=== PATIENT | male | born 1960 | race Caucasian/White ===

== ENCOUNTER 2016-11-03 21:17 | Emergency (ER) | payer OTHER, MEDICARE ==
[~2016-11-03] VITALS: Ht 172.7 cm; Wt 72.6 kg
--- NOTE | 2016-11-03 21:31 | ED GENERAL ADULT ---
History of Present Illness General Chief Complaint: General Adult Stated Complaint: PT OVERDOSE Source: patient, family, old records Exam Limitations: intoxication Vital Signs & Intake/Output Vital Signs & Intake/Output Vital Signs Date Time Temp Pulse Resp B/P B/P Pulse O2 O2 Flow FiO2 Mean Ox Delivery Rate 11/04 0303 57 15 131/59 96 Room Air 11/04 0014 96.5 64 15 113/54 Room Air 11/03 2205 Room Air 11/03 2126 96.3 81 18 109/59 97 Room Air ED Intake and Output 11/04 0000 11/03 1200 Intake Total 1000 Output Total Balance 1000 Intake, IV 1000 Patient 160 lb Weight Weight Estimated Measurement Method Allergies Coded Allergies: ampicillin (From UNASYN) (UNKNOWN 11/03/16) sulbactam (From UNASYN) (UNKNOWN 11/03/16) amitriptyline (From ELAVIL) (Severe, "HEART ATTACK" 11/03/16) Triage Note: RECEIVED 55 YO MALE BOUGHT IN BY , WHO STATES SHE CAME HOME AND FOUND HIM WITH ALTERED MENTAL STATUS. OF PT THINKS HE OVERDOSED ON SOMETHING. PT AWAKE WITH SLURRED SPEECH, DIFFICULT TO UNDERSTAND. PT BOUGHT DIRECTLY TO ROOM # 6 FOR EVALUATION AND TREATMENT. PT EVALUATED BY BRET LINDO UPON ARRIVAL TO ROOM. Triage Nurses Notes Reviewed? yes HPI: Patient is a 55-year-old male brought in by his for possible overdose. Patient's reports that she came home and found the patient to be extremely lethargic with altered mental status. Patient's found that patient has pills wrapped in a tissue that have the inscription Mylan A4 on them. Patient admits to taking 2 mg of Xanax along with his methadone, gabapentin and 50 mg of Benadryl. Patient's reports that patient has had severe reactions to benzodiazepines previously. Patient denies chest pain, abdominal pain, suicide attempt, vomiting, dyspnea, suicide attempt. (QUENTIN LINDO,JUANA) Past History Travel History Traveled to [place] past 21 day No Medical History Any Pertinent Medical History? see below for history Neurological: PARKINSON'S EENT: NONE Cardiovascular: HIGH BLOOD PRESSURE Respiratory: NONE Gastrointestinal: CHRON'S DISEASE Hepatic: NONE Renal: NONE Musculoskeletal: NONE Psychiatric: NONE Endocrine: NONE Blood Disorders: NONE Cancer(s): NONE Pneumonia Vaccine: 05/23/05 Influenza Vaccine: 05/23/05 Surgical History Surgical History: non-contributory Psychosocial History Who do you live with Spouse Services at Home NONE What is your primary language Dutch Tobacco Use: Quit >30 days ago Family History Hx Contributory? No (JUANA LAWTON) Review of Systems Review of Systems Constitutional: Reports: malaise. Denies: chills, fever. EENTM: Reports: no symptoms. Respiratory: Denies: cough, short of breath. Cardiovascular: Denies: chest pain. GI: Reports: abdominal pain (chronic). Denies: diarrhea, vomiting. Genitourinary: Reports: no symptoms. Musculoskeletal: Reports: no symptoms. Skin: Reports: no symptoms. Neurological/Psychological: Reports: see HPI. Hematologic/Endocrine: Reports: no symptoms. Immunologic/Allergic: Reports: no symptoms. (JUANA LAWTON) Physical Exam Physical Exam General Appearance: sedated, lethargic Head: atraumatic, normal appearance Eyes: Bilateral: EOMI, other (3mm pupils). Ears, Nose, Throat: normal pharynx, normal ENT inspection, hearing grossly normal Neck: normal inspection, supple, full range of motion Respiratory: normal breath sounds, chest non-tender, no respiratory distress, lungs clear Cardiovascular: regular rate/rhythm Gastrointestinal: soft, surgical scar mid abdomen, mild right lower abdominal tenderness Back: normal inspection, normal range of motion Extremities: normal inspection, normal capillary refill, normal range of motion, no edema Neurologic/Psych: lethargic, easily arousable Skin: intact, normal color, warm/dry Lymphatic: no anterior cervical charles (JUANA LAWTON) Core Measures ACS in differential dx? No CVA/TIA Diagnosis: No Severe Sepsis Present: No Septic Shock Present: No (JOSE AVALOS,CECILE Talbert) Progress Differential Diagnoses I considered the following diagnoses in my evaluation of the patient: overdose, withdrawal, ICH, sepsis, symptomatic anemia Plan of Care: Orders Procedure Date/time Status Telemetry/Crystal Calibrator 11/03 2149 Active URINE DRUGS OF ABUSE 11/03 2129 Complete ACETOMINOPHEN 11/03 2129 Complete TROPONIN LEVEL 11/03 2129 Complete SALICYLATE 11/03 2129 Complete ETHANOL 11/03 2129 Complete COMPREHENSIVE METABOLIC PANEL 11/03 2129 Complete CREATINE PHOSPHOKINASE 11/03 2129 Complete CBC WITHOUT DIFFERENTIAL 11/03 2129 Complete EKG 11/03 2124 Active Current Medications Sig/Olamide Start time Last Medication Dose Stop Time Status Admin Dextrose/Sodium 1,000 ML Q8H 11/03 2245 AC 11/04 Chloride 11/04 0644 0013 (D5W-1/2 Normal Saline 1000ML) Laboratory Tests 11/04/16 0020: Urine Opiates Screen < 100.00, Methadone Screen > 735 H, Barbiturate Screen < 60, Ur Phencyclidine Scrn 9.30, Amphetamines Screen > 1450 H, U Benzodiazepines Scrn > 800 H, Urine Cocaine Screen < 50, Urine Cannabis Screen < 5.00 11/03/16 2150: Anion Gap 13, Estimated GFR 45 L, BUN/Creatinine Ratio 16.3, Glucose 84, Calcium 9.1, Total Bilirubin 0.3, AST 25, ALT 27, Alkaline Phosphatase 51, Creatine Kinase 105, Troponin I < 0.01, Total Protein 6.5, Albumin 3.8, Globulin 2.7, Albumin/Globulin Ratio 1.4, CBC w Diff NO MAN DIFF REQ, RBC 3.19 L, MCV 80.4, MCH 26.0 L, RDW 16.5 H, MPV 8.1, Gran % 53.3, Lymphocytes % 26.2, Monocytes % 15.6 H, Eosinophils % 4.9, Basophils % 0 L, Absolute Granulocytes 2.4, Absolute Lymphocytes 1.2, Absolute Monocytes 0.7 H, Absolute Eosinophils 0.2, Absolute Basophils 0, PUBS MCHC 32.4 L, Salicylates < 1.0, Acetaminophen < 10.0 L, Serum Alcohol < 10.0 11/03/2016 10:16:41 PM: Patient reports that he took the pills due to abdominal pain, his intention was not to harm himself. Patient maintaining his airway, is lethargic but easily arousable. Narcan deferred at this time. Discussed with Dr. Melendez. 11/04/2016 12:05:29 AM: Patient continues with lethargy, easily arousable. results of CT scans discussed with patient. (JUANA LAWTON) Diagnostic Imaging: Viewed by Me: CT Scan. Discussed w/RAD: CT Scan. Radiology Impression: PATIENT: TIFFANIE OLIVEIRA PRESENT AGE: 55 PATIENT ACCOUNT NO: [id number] : 61 LOCATION: [facility] ORDERING PHYSICIAN: JUANA LINDO SERVICE DATE: 11/03/16 EXAM TYPE: CAT - CT ABD & PELVIS W/O IV CONTRAS EXAMINATION: CT ABDOMEN AND PELVIS WITHOUT CONTRAST CLINICAL INFORMATION: Lower abdominal pain, history of Crohn's disease. COMPARISON: CT abdomen and pelvis 02/26/2008 TECHNIQUE: Multidetector volumetric imaging was performed from the superior aspect of the liver through the pubic symphysis. Sagittal and coronal reformatted images were obtained on the technologist's workstation. DLP: 503.1 mGy-cm FINDINGS: LUNG BASES: There is bibasilar atelectasis. No focal consolidation or effusion. LIVER, GALLBLADDER, AND BILIARY TREE: The liver is normal in size, shape, and attenuation. No focal hepatic lesion or biliary ductal dilatation is present. The gallbladder is unremarkable with no evidence of radiopaque gallstones, gallbladder wall thickening, or obvious pericholecystic inflammatory changes. PANCREAS: Unremarkable. SPLEEN: Unremarkable. ADRENAL GLANDS: Unremarkable. KIDNEYS AND URETERS: The kidneys are normal in size, shape, and attenuation. No hydronephrosis, hydroureter, or calculi seen. No perinephric stranding. There is a lower pole right renal cyst. BLADDER: Unremarkable. GASTROINTESTINAL TRACT: There is very dense stool present throughout the visualized colon. A sutural anastomosis is identified in the right upper quadrant. No dilated loops of small bowel are identified. The appendix appears surgically absent. There is no free intra-abdominal air. ABDOMINAL WALL: There are small bilateral fat-containing inguinal hernias. LYMPH NODES: There are a few tiny scattered mesenteric lymph nodes. VASCULAR: Unremarkable. PELVIC VISCERA: The prostate gland and seminal vesicles are unremarkable. OSSEOUS STRUCTURES: There are bilateral pars defects at the L5-S1 level. There is mild anterolisthesis at the L5-S1 level measuring approximately 0.5 cm. IMPRESSION: 1. Dense stool present throughout the colon. No CT evidence for acute small or large bowel obstruction. 2. Bilateral pars defects with grade 1 associated spondylolisthesis. 3. Incidental right renal simple cyst. DICTATED BY: NICHOL CABRERA MD DATE/TIME DICTATED:11/03/162306 PIPE BOWLS PAINT TRIMMER:JON DATE/TIME TRANSCRIBED:11/03/162306 CONFIDENTIAL, DO NOT COPY WITHOUT APPROPRIATE AUTHORIZATION. <Electronically signed in Other Vendor System> SIGNED BY: NICHOL CABRERA MD 11/03/162314, PATIENT: TIFFANIE OLIVEIRA PRESENT AGE: 55 PATIENT ACCOUNT NO: [id number] : 61 LOCATION: [facility] ORDERING PHYSICIAN: JUANA LINDO SERVICE DATE: 11/03/16 EXAM TYPE: CAT - CT HEAD WO IV CONTRAST EXAMINATION: CT HEAD WITHOUT CONTRAST CLINICAL INFORMATION: Change in mental status. Rule out bleed. COMPARISON: None. TECHNIQUE: Contiguous axial imaging was performed from the skull base to vertex without intravenous contrast. DLP: 601 mGy-cm. FINDINGS : There is no evidence of acute intracranial hemorrhage or territorial infarction. No abnormal mass effect or midline shift is seen. Arrington to white matter differentiation is well preserved. No extra-axial fluid collections are identified. No hydrocephalus. No significant volume loss. There is no abnormal attenuation within the brain parenchyma. The osseous structures and soft tissues are normal. The mastoid air cells and visualized portions of the paranasal sinuses are well aerated. IMPRESSION: No acute intracranial pathology. DICTATED BY: MARY LEA MD DATE/TIME DICTATED:11/03/162305 PIPE BOWLS PAINT TRIMMER: JON DATE/TIME TRANSCRIBED:11/03/162305 CONFIDENTIAL, DO NOT COPY WITHOUT APPROPRIATE AUTHORIZATION. <Electronically signed in Other Vendor System> SIGNED BY: MARY LEA MD 11/03/162310 Initial ED EKG: normal sinus rhythm, q waves lead III, no acute st/t wave changes Prior EKG: changed Hand-Off Endorsed To: CECILE MELENDEZ MD Endorsed Time: 010 Pending: labs, other (resolution of intoxication) (JUANA LAWTON) Differential Diagnoses I considered the following diagnoses in my evaluation of the patient: overdose vs other. (CECILE MELENDEZ MD) Departure Departure Condition: Stable Clinical Impression Primary Impression: Benzodiazepine intoxication Secondary Impressions: Abdominal pain, Anemia Referrals: NATO MACIAS MD (PCP/Family) Departure Forms: Customer Survey General Discharge Information (JUANA LAWTON) Departure Disposition: HOME OR SELF CARE Comments 11/04/16, 5:35AM... pt is awake and alert. He is answering questions appropriately. He states that he inadvertently took extra pills due to anxiety. He denies SI/HI/hallucinations. He follows regularly with the [facility]. He will follow up with them later today. He denies anxiety at present. He would like to go home. Pt stable for discharge. I counseled him to take his medications as directed and not to purchase medications not prescribed to him. He expresses that he is safe for discharge and would like to go home. of note, anemia is stable with prior levels. PA/ELECTRICAL TECH/PROJECT MANAGER Co-Sign Statement Statement: ED Attending supervision documentation- [X] I saw and evaluated the patient. I have also reviewed all the pertinent lab results and diagnostic results. I agree with the findings and the plan of care as documented in the PA's/ELECTRICAL TECH/PROJECT MANAGER's documentation. [] I have reviewed the ED Record and agree with the PA's/ELECTRICAL TECH/PROJECT MANAGER's documentation. [] Additions or exceptions (if any) to the PAs/ELECTRICAL TECH/PROJECT MANAGER's note and plan are summarized below: [] (JOSE AVALOS,CECILE Talbert) Critical Care Note Critical Care Note Critical Care Time: 30-74 min (JOSE AVALOS,CECILE Talbert)
[2016-11-03 22:06] LABS: ABSOLUTE BASOPHIL COUNT 0 /CUMM (0.0-0.2); ABSOLUTE EOSINOPHIL COUNT 0.2 /CUMM (0.0-0.7); ABSOLUTE GRANULOCYTE CT 2.4 /CUMM (1.4-6.5); ABSOLUTE LYMPH COUNT 1.2 /CUMM (1.2-3.4); ABSOLUTE MONOCYTE COUNT 0.7 /CUMM (0.10-0.60); BASOPHIL % 0 % (0.0-2.0); EOSINOPHIL % 4.9 % (0-5); GRANULOCYTE % 53.3 % (42.2-75.2); HEMATOCRIT 25.6 % (42-52); MEAN CORPUSCULAR HGB CONC 32.4 G/DL (33.0-37.0); MEAN CORPUSCULAR VOLUME 80.4 FL (80.0-94.0); MEAN PLATELET VOLUME 8.1 FL (7.4-10.4); PLATELET COUNT 354 /CUMM (130-400); RBC DISTRIBUTION WIDTH 16.5 % (11.5-14.5); RED BLOOD CELL CT 3.19 /CUMM (4.70-6.10); WHITE BLOOD CELL COUNT 4.6 /CUMM (4.8-10.8)
--- NOTE | 2016-11-03 23:11 | CT SCAN REPORT ---
EXAMINATION: CT HEAD WITHOUT CONTRAST CLINICAL INFORMATION: Change in mental status. Rule out bleed. COMPARISON: None. TECHNIQUE: Contiguous axial imaging was performed from the skull base to vertex without intravenous contrast. DLP: 601 mGy-cm. FINDINGS: There is no evidence of acute intracranial hemorrhage or territorial infarction. No abnormal mass effect or midline shift is seen. Arrington to white matter differentiation is well preserved. No extra-axial fluid collections are identified. No hydrocephalus. No significant volume loss. There is no abnormal attenuation within the brain parenchyma. The osseous structures and soft tissues are normal. The mastoid air cells and visualized portions of the paranasal sinuses are well aerated. IMPRESSION: No acute intracranial pathology.
--- NOTE | 2016-11-03 23:15 | CT SCAN REPORT ---
EXAMINATION: CT ABDOMEN AND PELVIS WITHOUT CONTRAST CLINICAL INFORMATION: Lower abdominal pain, history of Crohn's disease. COMPARISON: CT abdomen and pelvis 02/26/2008 TECHNIQUE: Multidetector volumetric imaging was performed from the superior aspect of the liver through the pubic symphysis. Sagittal and coronal reformatted images were obtained on the technologist's workstation. DLP: 503.1 mGy-cm FINDINGS: LUNG BASES: There is bibasilar atelectasis. No focal consolidation or effusion. LIVER, GALLBLADDER, AND BILIARY TREE: The liver is normal in size, shape, and attenuation. No focal hepatic lesion or biliary ductal dilatation is present. The gallbladder is unremarkable with no evidence of radiopaque gallstones, gallbladder wall thickening, or obvious pericholecystic inflammatory changes. PANCREAS: Unremarkable. SPLEEN: Unremarkable. ADRENAL GLANDS: Unremarkable. KIDNEYS AND URETERS: The kidneys are normal in size, shape, and attenuation. No hydronephrosis, hydroureter, or calculi seen. No perinephric stranding. There is a lower pole right renal cyst. BLADDER: Unremarkable. GASTROINTESTINAL TRACT: There is very dense stool present throughout the visualized colon. A sutural anastomosis is identified in the right upper quadrant. No dilated loops of small bowel are identified. The appendix appears surgically absent. There is no free intra-abdominal air. ABDOMINAL WALL: There are small bilateral fat-containing inguinal hernias. LYMPH NODES: There are a few tiny scattered mesenteric lymph nodes. VASCULAR: Unremarkable. PELVIC VISCERA: The prostate gland and seminal vesicles are unremarkable. OSSEOUS STRUCTURES: There are bilateral pars defects at the L5-S1 level. There is mild anterolisthesis at the L5-S1 level measuring approximately 0.5 cm. IMPRESSION: 1. Dense stool present throughout the colon. No CT evidence for acute small or large bowel obstruction. 2. Bilateral pars defects with grade 1 associated spondylolisthesis. 3. Incidental right renal simple cyst.
[2016-11-04 05:40] VITALS: BP 148/76
== END 2016-11-04 05:47 ==
LOC: ERH 21:17
PROVIDERS: Physician Assistant
DX: F13.229 Sedative, hypnotic or anxiolytic dependence with intoxication, unspecified (principal); D64.9 Anemia, unspecified; R10.9 Unspecified abdominal pain
CPT/HCPCS: 74176; 80307; 93005; 93010; 96360; 96361; 99291; G0480; J7042

== ENCOUNTER 2017-01-31 15:11 | Observation (INO) | payer OTHER, MEDICARE ==
[~2017-01-31] VITALS: Ht 177.8 cm; Wt 63.5 kg
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
--- NOTE | 2017-01-31 15:54 | NUR ---
LABS DRAWN AND SENT SST, LAV, BLUE, RUELAS SENT
[2017-01-31 15:59] LABS: ABSOLUTE BASOPHIL COUNT 0 /CUMM (0.0-0.2); ABSOLUTE EOSINOPHIL COUNT 0.3 /CUMM (0.0-0.7); ABSOLUTE GRANULOCYTE CT 3.8 /CUMM (1.4-6.5); ABSOLUTE LYMPH COUNT 1.5 /CUMM (1.2-3.4); ABSOLUTE MONOCYTE COUNT 0.8 /CUMM (0.10-0.60); BASOPHIL % 0 % (0.0-2.0); EOSINOPHIL % 5.4 % (0-5); GRANULOCYTE % 59.4 % (42.2-75.2); MEAN CORPUSCULAR HGB 24.5 PG (27.0-31.0); MEAN CORPUSCULAR HGB CONC 32.7 G/DL (33.0-37.0); MEAN CORPUSCULAR VOLUME 74.9 FL (80.0-94.0); MEAN PLATELET VOLUME 9.1 FL (7.4-10.4); PLATELET COUNT 232 /CUMM (130-400); RBC DISTRIBUTION WIDTH 19.5 % (11.5-14.5); RED BLOOD CELL CT 4.01 /CUMM (4.70-6.10); WHITE BLOOD CELL COUNT 6.4 /CUMM (4.8-10.8)
--- NOTE | 2017-01-31 17:46 | NUR ---
PATIENT PULLS OUT IV. BLEEDING CONTROLLED. NEW IV IS INITIATED.
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
--- NOTE | 2017-01-31 19:59 | NUR ---
PATIENT RESTING QUIETLY. OFFERS NO C/O. NAD
--- NOTE | 2017-01-31 20:35 | NUR ---
FINGERSTICK 53. OJ IS GIVEN
--- NOTE | 2017-01-31 20:57 | NUR ---
PTS ONEIL [phone]
--- NOTE | 2017-01-31 21:34 | NUR ---
PATIENT RELUCTANTLY CHANGED INTO PAPER SCRUBS W/ SECURITY PRESENT. ONE BAG PERSONAL CLOTHING LOCKED IN CLOSET.
--- NOTE | 2017-01-31 22:12 | History & Physical ---
HARRIS MA MD,[facility] 01/31/17 2211: General Information and HPI MD Statement: I have seen and personally examined TIFFANIE OLIVEIRA and documented this H&P. The patient is a 56 year old M who presented with a patient stated chief complaint of feeling sleepy while driving (per EMS). Source of Information: patient History of Present Illness: Patient is a 56-year-old male brought today ER by EMS with chief complaint of feeling sleepy during driving this afternoon. Patient states that he was driving to beach around 12 pm and suddenly felt sleepy and thought that humid weather will cause cracks on his guitar!! He was found asleep by police in his car (with windows up in 90+ F) and was observed in police department until EMS took him to ER. Patient initially denied taking any drugs but after lab results he admitted that he took took methadone (from [facility]) and 4 tablets of BDZ (Klonopin, got from [facility]) this morning. He has history of several surgeries and chronic pain due to Crohn's disease, chronic blood loss and blood transfusion, HTN, Parkinson disease (per patient), suicidal attempts (at least X2 per his ), depression and drug abuse. Patients denies suicidal ideas now and notes his is "Dramatic". He denies dizziness, chest pain, nausea and vomiting, or passing out. His and sister state that he asked them to check payments for life insurance to be current. He also notes that he has an appointment at [facility] on friday for assessment of his psychological status related to his medical condition (he notes he had 16 surgeries for Crohn disease with last one in 2011). His Crohn disease is currently controlled by Infliximab and Entyvio. He did now eat in since morning and his BS was 70 in the ER. SOH: Smokes 1/3 PPD, does not drink alcohol, uses street drugs Allergies/Medications Allergies: Coded Allergies: ampicillin (From [facility]) (UNKNOWN 11/03/16) sulbactam (From [facility]) (UNKNOWN 11/03/16) amitriptyline (From [facility]) (Severe, "HEART ATTACK" 11/03/16) Home Med list Fluoxetine HCl (Prozac) 40 MG CAPSULE 1 CAP PO QAM depression (Reported) Gabapentin 300 MG CAPSULE 1 CAP PO TID pain (Reported) Lisinopril 20 MG TABLET 1 TAB PO DAILY htn (Reported) Methadone HCl (Dolophine HCl) 10 MG TABLET 180 MG PO DAILY opiote dependence (Reported) Past History Travel History Traveled to [place] past 21 day No Medical History Blood Transfusion Hx: Yes Neurological: PARKINSON'S EENT: NONE Cardiovascular: HIGH BLOOD PRESSURE Respiratory: NONE Gastrointestinal: Crohn's disease Hepatic: NONE Renal: NONE Musculoskeletal: NONE Psychiatric: anxiety, depression, opioid dependence, substance abuse, Suicidal attempts Endocrine: NONE Blood Disorders: NONE Cancer(s): NONE Surgical History Surgical History: had 16 surgeries related to his Crohn disease Past Family/Social History Psychosocial History Services at Home: NONE ETOH Use: denies use Review of Systems Review of Systems Constitutional: Denies: no symptoms, see HPI, chills, diaphoresis, fever, malaise, weakness, unexplained weight loss. EENTM: Denies: no symptoms, see HPI, blurred vision, double vision, visual changes, eye pain, eye drainage, eye tearing, icterus, ear discharge, ear pain, ear redness, hearing changes, nasal congestion, epistaxis, nasal pain, throat pain, throat swelling, mouth pain, tooth pain. Cardiovascular: Reports: no symptoms. Respiratory: Reports: no symptoms. GI: Reports: no symptoms (Currently reports no symptoms). Genitourinary: Reports: no symptoms. Musculoskeletal: Reports: no symptoms. Exam & Diagnostic Data Last 24 Hrs of Vital Signs/I&O Vital Signs Date Time Temp Pulse Resp B/P B/P Pulse O2 O2 Flow FiO2 Mean Ox Delivery Rate 01/31 1947 97.5 47 16 113/65 96 01/31 1522 97.3 65 16 171/79 96 Room Air Intake & Output 02/01 0800 02/01 0000 01/31 1600 Intake Total 3000 Output Total Balance 3000 Intake, IV 3000 Patient 150 lb Weight Physical Exam General Appearance Alert, Oriented X3, Cooperative Skin No Rashes, No Breakdown, No Significant Lesion HEENT Atraumatic, PERRLA, EOMI, Mucous Membr. moist/pink Neck Supple, No JVD Cardiovascular No Murmurs Lungs Clear to Auscultation, Normal Air Movement Abdomen Soft, No Tenderness, No Hepatospenomegaly (scar of previous surgery) Neurological Normal Tone Extremities No Clubbing, No Cyanosis, No Edema, No Tenderness/Swelling Body Front and Back (Adult) 1) Last 24 Hrs of Labs/Hao: 1- Scar of previous surgeries Laboratory Tests 01/31/171920: Troponin I < 0.01 01/31/17 192: Anion Gap 9, Estimated GFR 18 L, BUN/Creatinine Ratio 6.4 L, Glucose 51 L, Calcium 7.6 L, Total Bilirubin 0.3, AST 25, ALT 27, Alkaline Phosphatase 54, Total Protein 5.9 L, Albumin 3.4 L, Globulin 2.5, Albumin/Globulin Ratio 1.4 01/31/17 1719: Urine Opiates Screen < 100.00, Methadone Screen > 735 H, Barbiturate Screen < 60, Ur Phencyclidine Scrn 13.90, Amphetamines Screen < 100, U Benzodiazepines Scrn > 800 H, Urine Cocaine Screen < 50, Urine Cannabis Screen < 5.00 01/31/17 1542: Anion Gap 12, Estimated GFR 16 L, BUN/Creatinine Ratio 6.0 L, Glucose 60 L, Calcium 9.1, Total Bilirubin 0.4, AST 29, ALT 28, Alkaline Phosphatase 56, Troponin I < 0.01, Total Protein 7.1, Albumin 4.4, Globulin 2.7, Albumin/ Globulin Ratio 1.6, TSH 4.010, CBC w Diff NO MAN DIFF REQ, RBC 4.01 L, MCV 74.9 L, MCH 24.5 L, RDW 19.5 H, MPV 9.1, Gran % 59.4, Lymphocytes % 23.2, Monocytes % 12.0 H, Eosinophils % 5.4 H, Basophils % 0 L, Absolute Granulocytes 3.8, Absolute Lymphocytes 1.5, Absolute Monocytes 0.8 H, Absolute Eosinophils 0.3, Absolute Basophils 0, PUBS MCHC 32.7 L, Salicylates < 1.0, Acetaminophen < 10.0 L, Serum Alcohol < 10.0 Diagnostic Data EKG Results Sinus bradycardia Assessment/Plan Assessment: Patient is a 56-year-old male with possible polysubstance abuse, acute kidney injury, bradycardia, attempted suicide. The methadone dose will be decrased for tomorrow and bradicardia will be observed. The MARKUS is most likely due to staying for long hours in the car. Patient already received 3 L of normal saline in the ER. We will continue normal saline and stop lisinopril. CK to be checked to rule out possible muscle injury and bladder scan will be performed to assess post renal injury. Bradycardia is most likely due to overdose of methadone. Patient will be admitted and observed in tele and serial EKG and troponin will be obtained. Anemia will be investigated by iron studies to assess chronic blood loss associated with Crohn's disease. As Ranked By This Provider Problem List: 1. Polysubstance abuse 2. Opioid abuse 3. Benzodiazepine abuse 4. Benzodiazepine intoxication 5. Anemia 6. Abdominal pain 7. Acute kidney injury 8. Bradycardia Core Measures/Miscellaneous Acute Coronary Syndrome ACS Diagnosis: No Cerebrovascular Accident CVA/TIA Diagnosis: No Congestive Heart Failure CHF Diagnosis: No VTE (View Protocol) VTE Risk Factors: Smoking No Mech VTE prophylaxis d/t: VTE low risk No VTE Pharm Prophylaxis d/t: VTE low risk VTE Diagnosis: No VTE Type: NONE VTE Confirmed by (Test): NONE Sepsis (View Protocol) Severe Sepsis Present: No Septic Shock Septic Shock Present: No Miscellaneous Documentation Attending Case Discussed With: ALEXEI VENEGAS MD Primary Care Physician: NATO MACIAS MD Patient sees these Specialists Template Reproduction Technician Psychiatrist Level of Patient Care: Telemetry Consults Needed: Consulting Specialty: Psychiatry OPHELIA MARTINEZ 02/01/17 0222: Resident Review Statement Resident Statement: examined this patient, discussed with wildlife biology internship, agreed with wildlife biology internship, discussed with family, reviewed EMR data (avail), discussed with nursing , discussed with case mgmt, reviewed images, amended to note Other Findings: This is a 56-year-old gentleman with past medical history significant for Crohn' s disease status post multiple resection surgeries, chronic abdomen pain, chronic anemia, chronic blood loss, substance abuse disorder, Parkinson's disease, hypertension, depression, chronic smoker, opiate dependence on methadone was brought to the emergency department by the ambulance c/o episode of lethargy, sleeping while driving. Patient usually takes methadone 180 mg at 6 AM from [email or web address]. Patient also admits that he takes Klonopin daily [address] He took methadone and Klonopin this morning and he was on his way to beach. He felt sleepy and pulled his car to the side. He was found sleeping in the car, neighbors called police, and then he was brought to emergency department by the police. Offers no complaints in the emergency room. Denied any chest pain, dizziness, lightheadedness. Denies any fall, syncopal events. No loss of consciousness. Denied any suicidal or homicidal ideations. However slurred and slow speech was noticed. Denies any headache, nausea, vomiting, weakness, numbness, gait changes. Vitals on admission afebrile, heart rate 65 later dropped to 47, respiratory rate 16, blood pressure 170/79, saturating at 96 on room air. physical examination findings aao 3, H EENT within normal limits, no cervical lymphadenopathy, chest and lungs were clear, abdomen soft nontender, bowel sounds heard. Extremities within normal limits no cyanosis no clubbing no edema pulses intact. Neuro exam was completely benign. Pertinent labs on admission WBC 6.4, hemoglobin 9.8, hematocrit 30, MCV 74.9, platelets 232. Sodium 140, potassium 5.5, 105 chloride, bicarbonate 23, BUN/creatinine 24 and creatinine 4. Glucose 60 at the time of admission. Troponins negative Thyroid function tests normal U tox positive for methadone and benzodiazepines. EKG showed sinus rhythm, sinus bradycardia, DC interval 160, QTC 452. He received 3 bags of IV normal saline in the emergency room. 1. Bradycardia Patient was brought to ER as he was found sleeping in the car. Patient admitted taking methadone and benzodiazepine this morning. Bradycardia most possibly from drug overdose methadone and benzodiazepines. -Admit to telemetry floor for continuous telemetry monitoring -Serial troponins and EKGs -cardiology consult -Please avoid beta blockers and calcium channel blockers -Will reduce dose of methadone for tomorrow -Monitor closely for any dizziness, chest pain, lightheadedness, syncopal events. 2. Acute kidney injury Most possibly from dehydration. We will hold his home medication lisinopril. -Continue normal saline 100 mL per hour -Check CK -Check bladder scan -Will repeat BEP in the morning 3. Chronic anemia H&H at baseline. Will check iron studies. 4. Depression Denies any suicidal or homicidal ideation stop. Continue home medication Prozac 5. Hypertension Usually takes lisinopril at home. Will hold lisinopril because of AK I 6. Crohn's disease Status post multiple surgeries, resections, chronic abdomen pain, chronic anemia , chronic blood loss. Gets B12 injections every month. Gets infliximab once a month. Follows Dr. Bales at [facility] 7. Polysubstance abuse He is a chronic smoker 1 pack per day. Illicit drug abuser-takes Klonopin. Opiate dependence on methadone treatment. Takes 180 mg every day at 6 [facility] from [facility] Will decrease dose to 90 mg for tomorrow as he is bradycardic. Consult psychiatrist. Full code Regular diet Subcutaneous heparin ALEXEI VENEGAS 02/01/17 0237: Attending MD Review Statement Attending Statement Attending MD Statement: examined this patient, discuss w/resident/PA/PROFESSIONAL SERVICES MANAGER, agreed w/resident/PA/PROFESSIONAL SERVICES MANAGER, reviewed EMR data (avail), reviewed images, amended to note Attending Assessment/Plan: CC: Found sleeping in the car PMH: Crohn's disease, chronic abdominal pain, chronic back pain, multiple abdominal surgeries, anemia, depression History is ambiguous, patient is unreliable source. History is mostly obtained from the chart. According to triage note patient was found sleepy in the car which was pulled over on side. Police were called by neighbors brought him to ER. Patient complainsed of lethargy only. When asked about details, patient states that he went [place] and was playing his guitar because it was galina outside but then it was very hot so he decided to come back home when he was very tired and sleepy. He denies any chest pain, dizziness, opticians, nausea, vomiting, dyspnea, overdose, alcohol use, suicidal ideation, hallucinations, passing out, loss of consciousness, decreased or change in urine color. Patient had been in ER a few times for drug overdose, possible suicidal ideation in the past. Vitals: Afebrile, pulse in 40s, RR 16, blood pressure 171/79 on arrival improved to 113/65, saturating well on room air. On exam: Arousable but sleepy, O x 3, cooperative, no acute distress, neck supple, JVD normal, no lymphadenopathy, mucosa dry, no focal neurological deficit, no dependent edema, no obvious skin rashes or inflammation CVS: S1-S2, RRR. RS: Clear to auscultate bilaterally. Abdomen: Soft, NT, ND, bowel sounds present. Labs: WBC 6.4, hemoglobin 9.8, hematocrit 30.0, platelet 232, MCV 74, RDW 19.5, sodium 140, potassium 5.5, chloride 105, bicarbonate 23, then 24, creatinine 4.0 , glucose 50, calcium 9.1 on 73.5, troponin less than 0.01, TSH 4.010 U tox positive for methadone more than 735, benzodiazepines more than 800, negative for alcohol EKG showed sinus bradycardia A and P 56-year-old male with past medical history significant for Crohn's disease and chronic abdominal pain on methadone and uses clonazepam as straight drug presented to ER after found sleepy in his car. Patient states that he had been feeling very sleepy and lethargic. Neighbor informed police who brought him to ER. According to ER note his family mentioned the concern that there might be a suicidal ideation but patient denies any such suicidal ideation or homicidal ideation hallucinations. Patient had been evaluated by crisis in ER. states that he may have taken extra doses of Klonopin. He had been out in the sun according to him, And appears to have mild sunburn/atkins on his back. Patient found to be bradycardic in ER pulse and 40s otherwise vitals and exam unremarkable. His creatinine was markedly elevated to 4.0 his baseline being 1.6 in October 2016, mild elevation in potassium and the initial labs. Patient was hydrated with 3 L normal saline in ER is creatinine improved to 3.6 and potassium improved to 5.0 still patient appears dehydrated. He would benefit from telemetry admission for bradycardia, unclear if patient had a syncope or loss of consciousness. Patient states that he had been feeling sleepy probably secondary to methadone and gabapentin in setting of acute kidney injury. Of note patient was started on propranolol and levodopa carbidopa combination by his PCP for tremors but on examination patient does not have any intentional or at rest tremors patient states that he stopped those medications few months back. + Acute kidney injury + Toxic encephalopathy + Sinus bradycardia + History of chronic abdominal pain, chronic back pain, Crohn's disease, anemia - Place in observation in telemetry - Continuous telemetry monitoring for sinus bradycardia - Check serial troponin and EKG - Cardiology consult in a.m. - Continue gentle hydration at 125 and normal saline per hour - Add CPK to sample in lab - Post void bladder scan - Strict I's and O's - Continue psych consult - Continue clonazepam 1 mg 2 times daily hold if sleepy - Decreased the dose of methadone to half and gabapentin to 100 3 times a day detailed creatinine improves, then can resume to home doses. Hold lisinopril. - DVT prophylaxis with heparin - Judicious use of narcotics given history of overdose and toxic encephalopathy
--- NOTE | 2017-01-31 22:33 | NUR ---
PT HAS BED 179-1
--- NOTE | 2017-01-31 22:57 | NUR ---
PATIENT CHANGED INTO GOWN. BEDSIDE MONITOR CONTINUES.
--- NOTE | 2017-01-31 23:05 | NUR ---
HAVE ASKED PATIENT INPATIENT DOCTOR FOR DEXTROSE. MDs BOTH DENY NEED FOR SAID IVF. WILL FEED PATIENT CRACKERS AND JUICE. HAVE INFORMED RECEIVING NURSE.
[2017-02-01] MEDS ORDERED: GABAPENTIN300 M2 PO (01:09)
[2017-02-01] MEDS ORDERED: LISINOPRIL20 M1 PO (01:09)
[2017-02-01] MEDS ORDERED: DOLOPHINE HCL10 M1 PO (01:10)
[2017-02-01] MEDS ORDERED: PROZAC40 M1 PO (01:10)
[2017-02-01 07:20] VITALS: BP 122/60
[2017-02-01 08:03] LABS: ABSOLUTE BASOPHIL COUNT 0 /CUMM (0.0-0.2); ABSOLUTE EOSINOPHIL COUNT 0.2 /CUMM (0.0-0.7); ABSOLUTE GRANULOCYTE CT 2.4 /CUMM (1.4-6.5); ABSOLUTE LYMPH COUNT 1.1 /CUMM (1.2-3.4); ABSOLUTE MONOCYTE COUNT 0.6 /CUMM (0.10-0.60); BASOPHIL % 0.2 % (0.0-2.0); EOSINOPHIL % 5.5 % (0-5); HEMATOCRIT 25.6 % (42-52); MEAN CORPUSCULAR HGB 24.4 PG (27.0-31.0); MEAN CORPUSCULAR HGB CONC 32.3 G/DL (33.0-37.0); MEAN CORPUSCULAR VOLUME 75.4 FL (80.0-94.0); MEAN PLATELET VOLUME 9.4 FL (7.4-10.4); PLATELET COUNT 163 /CUMM (130-400); RBC DISTRIBUTION WIDTH 19.4 % (11.5-14.5); RED BLOOD CELL CT 3.39 /CUMM (4.70-6.10); WHITE BLOOD CELL COUNT 4.3 /CUMM (4.8-10.8)
--- NOTE | 2017-02-01 08:46 | PN- Housestaff ---
NOLANJEROMEANNABEN 02/01/17 0846: Subjective Follow-up For: asymptomatic bradycardia polysubstance abuse Complaints: no complaints Tele-Events Since Last Visit: Sinus Bradycarida 40 to 49 Subjective: seen and examined patient today morning ,doing okay, no new complaints. Review of Systems Constitutional: Reports: see HPI. Objective Last 24 Hrs of Vital Signs/I&O Vital Signs Date Time Temp Pulse Resp B/P B/P Pulse O2 O2 Flow FiO2 Mean Ox Delivery Rate 02/01 1458 98.2 48 20 144/72 96 Room Air 02/01 0720 97.6 48 20 122/60 94 Room Air 01/31 1947 97.5 47 16 113/65 96 Intake & Output 02/01 1600 02/01 0800 02/01 0000 Intake Total 1800 1200 3000 Output Total 1300 1000 Balance 025 710 1139 Intake, IV 1961 845 4585 Intake, Oral 800 600 Output, Urine 1300 1000 Patient 63.503 kg Weight Physical Exam General Appearance: No Acute Distress Skin: No Rashes, No Breakdown Cardiovascular: Normal S1, Normal S2, No Murmurs Lungs: Clear to Auscultation, Normal Air Movement Abdomen: Normal Bowel Sounds, Soft, No Tenderness Neurological: nonfocal Extremities: No Clubbing, No Cyanosis, No Edema, Normal Pulses Vascular: Normal Pulses Current Medications: Current Medications Sig/Olamide Start time Last Medication Dose Route Stop Time Status Admin Acetaminophen 650 MG Q6P PRN 01/31 2230 AC PO Atropine Sulfate 1 MG ONCE PRN 02/01 0230 AC IV PUSH Clonazepam 1 MG BID 02/01 1000 AC PO 02/08 0959 Ferrous Sulfate 325 MG DAILY 02/01 1816 AC PO Fluoxetine HCl 40 MG DAILY 02/01 1000 AC 02/01 PO 1051 Gabapentin 100 MG Q8 02/01 0601 AC 02/01 PO 1500 Gabapentin 200 MG Q8 02/01 0600 DC PO Heparin Sodium 5,000 UNIT Q8 02/01 0600 AC 02/01 (Porcine) SC 1459 Methadone HCl 90 MG DAILY AC 02/01 0700 AC 02/01 PO 1051 Polyethylene Glycol 17 GM DAILY PRN 02/01 1830 AC PO Sodium Chloride 1,000 ML Q10H 02/01 0115 AC 02/01 IV 1051 Sodium Chloride 1,000 ML .[id number] 01/31 2230 DC IV Last 24 Hrs of Lab/Hao Results Last 24 Hrs of Labs/Mics: Laboratory Tests 02/01/17 0650: Anion Gap 10, Estimated GFR 20 L, BUN/Creatinine Ratio 8.4, Iron 31 L, TIBC 338, Ferritin 11.1 L, Creatine Kinase 109, CBC w Diff NO MAN DIFF REQ, RBC 3.39 L, MCV 75.4 L, MCH 24.4 L, RDW 19.4 H, MPV 9.4, Gran % 55.0, Lymphocytes % 24.5, Monocytes % 14.8 H, Eosinophils % 5.5 H, Basophils % 0.2, Absolute Granulocytes 2.4, Absolute Lymphocytes 1.1 L, Absolute Monocytes 0.6, Absolute Eosinophils 0.2, Absolute Basophils 0, PUBS MCHC 32.3 L 02/01/17 0200: Troponin I < 0.01 01/31/171920: Troponin I < 0.01 01/31/171920: Anion Gap 9, Estimated GFR 18 L, BUN/Creatinine Ratio 6.4 L, Glucose 51 L, Calcium 7.6 L, Total Bilirubin 0.3, AST 25, ALT 27, Alkaline Phosphatase 54, Total Protein 5.9 L, Albumin 3.4 L, Globulin 2.5, Albumin/Globulin Ratio 1.4 Lines/Diet/Fluids Restraints: none Assessment/Plan Assessment: This is a 56-year-old gentleman with past medical history significant for Crohn' s disease status post multiple resection surgeries, chronic abdomen pain, chronic anemia, chronic blood loss, substance abuse disorder, Parkinson's disease, hypertension, depression, chronic smoker, opiate dependence on methadone was brought to the emergency department by the ambulance c/o episode of lethargy, sleeping while driving admitted night of 01/31/17 His Vitals on admission afebrile, heart rate 65 later dropped to 47, respiratory rate 16, blood pressure 170/79, saturating at 96 on room air. U tox positive for methadone and benzodiazepines. EKG showed sinus rhythm, sinus bradycardia, CT interval 160, QTC 452. He received 3 bags of IV normal saline in the emergency room. 1. Asymptomatic Bradycardia * No h/o athletism. * Patient was brought to ER as he was found sleeping in the car. * Patient admitted taking methadone and benzodiazepine morning of admisison. * Bradycardia most possibly from drug overdose methadone and benzodiazepines. * EKg and troponin negative. * Cardiology consult appreicated. * Avoid beta blockers and calcium channel blockers * Ct reduaced dose of methadone, confirm methadone dosage on week days. 2. Acute kidney injury * Most possibly from dehydration. * Ct to hold his home medication lisinopril. * Continue normal saline 100 mL per hour * MARKUS mildly improved, ct to trend 3. Chronic anemia * Stbale. * serum coco and ferritin low, mostlikely 2/2 to iron deficiency. * start ferrous sulfate. * PRN miralax if constipated. 4. Depression * Ct prozac * stable. 5. Hypertension * Usually takes lisinopril at home. * Will hold lisinopril because of AK I * Ct to monitor BP closely as was mildly high, if continues to stay high overnight, consider one item amlodipine as his home med has been held 2/2 ot MARKUS (* lisinorpil) * 6. Crohn's disease * Status post multiple surgeries, resections, chronic abdomen pain, chronic anemia, chronic blood loss. * Gets B12 injections every month. * Gets infliximab once a month. * Follows Dr. Bales at [facility] 7. Polysubstance abuse * He is a chronic smoker 1 pack per day. * Illicit drug abuser-takes Klonopin. * Opiate dependence on methadone treatment. * Takes 180 mg every day at 6 AM from [email or web address] * Will continued reduced dosage of 90 mg due ot bradycardia as this seems to be most likely causing the low HR. * Psych needs to see patient tomorrow, as they hvnt answered back today. Full code Regular diet DVT PX : Subcutaneous heparin Problem List: 1. Polysubstance abuse 2. Opioid abuse 3. Benzodiazepine abuse 4. Benzodiazepine intoxication 5. Anemia 6. Abdominal pain 7. Acute kidney injury 8. Bradycardia Pain Ratin Pain Location: none Pain Goal: Remain pain free Pain Plan: as ordered Tomorrow's Labs & Rationales: cbc, bep Consulting Request: Consulting Specialty: Psychiatry SAIDA AVALOS,AMIR 02/01/17 2203: Attending MD Review Statement Attending Statement Attending MD Statement: examined this patient, discuss w/resident/PA/DIRECTOR INDEX, agreed w/resident/PA/DIRECTOR INDEX, reviewed EMR data (avail), discussed with nursing Attending Assessment/Plan: Mr. Morris was seen and examined by me. Chart reviewed. Remain aysmptomatic bradycardic. Reports abusing Klonin, receives Methadone from [facility]. Cr elevated. Cont IVF and lytes repletion. f/u lytes in am. Cont to monitor on Tele. F/u cards eval. Rest of the plan as per resident's note
--- NOTE | 2017-02-01 08:46 | PN- Housestaff ---
Assessment/Plan Consulting Request: Consulting Specialty: Psychiatry
--- NOTE | 2017-02-01 11:29 | Cons- Cardiology ---
General Information and HPI Consulting Request Date of Consult: 02/01/17 Requested By: ALEXEI VENEGAS MD Reason for Consult: Sinus bradycardia. Source of Information: patient, old records Exam Limitations: poor historian History of Present Illness: Mr. Rowdy Darby is a 56-year-old male with a history of long- standing tobacco use, hypertension, peripheral vascular disease s/p catheter- based lower extremity intervention for nonhealing wounds, strong family history for coronary artery disease with father having a myocardial infarction in his early 50s, "Parkinson's disease" that is untreated, severe Crohn's disease with chronic pain syndrome, status post multiple surgeries and transfusions for chronic blood loss anemia, and psychiatric issues with previous suicidal ideation/attempts who presented on 01/31/2017 after being found by the [place] [employer] asleep in his very hot automobile without air conditioning on and was brought in to the ED from that location by ambulance. He states that he was given an infusion of Entyvio (vedolizumab) on () by his hospitalist nocturnist physician (Abbe Adamson M.D.) and became febrile and hypertensive. It was recommended that he seek ED evaluation, but he opted to go home after a period of observation. On Friday (01/31/2017), he decided to [place] a ride to the beach, but felt very poorly while heading there and decided to turn back and was found by the police as described above. He states that he is presently taking lisinopril, fluoxetine, gabapentin, methadone, and the Entyvio. Allergies/Medications Allergies: Coded Allergies: ampicillin (From UNASYN) (UNKNOWN 11/03/16) sulbactam (From UNASYN) (UNKNOWN 11/03/16) amitriptyline (From ELAVIL) (Severe, "HEART ATTACK" 11/03/16) Home Med List: Fluoxetine HCl (Prozac) 40 MG CAPSULE 1 CAP PO QAM depression (Reported) Gabapentin 300 MG CAPSULE 1 CAP PO TID pain (Reported) Lisinopril 20 MG TABLET 1 TAB PO DAILY htn (Reported) Methadone HCl (Dolophine HCl) 10 MG TABLET 180 MG PO DAILY opiote dependence (Reported) Review of Systems Review of Systems: A 14 point system review was obtained and was noncontributory, other than as above. Past History Travel History Traveled to [place] past 21 day No Medical History Blood Transfusion Hx: Yes Neurological: PARKINSON'S EENT: NONE Cardiovascular: HIGH BLOOD PRESSURE Respiratory: NONE Gastrointestinal: Crohn's disease Hepatic: NONE Renal: NONE Musculoskeletal: NONE Psychiatric: anxiety, depression, opioid dependence, substance abuse, Suicidal attempts Endocrine: NONE Blood Disorders: NONE Cancer(s): NONE Surgical History Surgical History: had 16 surgeries related to his Crohn disease Psychosocial History Services at Home: NONE Smoking Status: Current Everyday Smoker ETOH Use: denies use Exam & Diagnostic Data Vital Signs and I&O Vital Signs Date Time Temp Pulse Resp B/P B/P Pulse O2 O2 Flow FiO2 Mean Ox Delivery Rate 02/01 07 97.6 48 20 122/60 94 Room Air 01/31 1947 97.5 47 16 113/65 96 01/31 1522 97.3 65 16 171/79 96 Room Air Intake & Output 02/01 1600 02/01 0800 02/01 0000 01/31 1600 01/31 0800 01/31 0000 Intake Total 1200 3000 Output Total 1000 Balance 200 3000 Intake, IV 600 3000 Intake, Oral 600 Output, Urine 1000 Patient 140 lb 150 lb Weight Physical Exam: Well-developed, well-nourished middle-aged male in no acute distress. Vital signs: See above. HEENT: Normocephalic, atraumatic, EOMI, slightly dry mucous membranes. Neck: No JVD, no bruits. Lungs: Clear to auscultation bilaterally. Heart: S1, S2 with soft (grade 1/6) systolic murmur. PMI fifth ICS at MCL. No gallop or rub. Abdomen: Soft, nontender, positive bowel sounds. Extremities: No edema. Peripheral pulses: Symmetrical and intact. Labs/Hao Results: Laboratory Tests 02/01 02/01 01/31 01/31 0650 0200 1921 1921 Chemistry Sodium (137 - 145 mmol/L) 142 140 Potassium (3.5 - 5.1 mmol/L) 5.1 5.0 Chloride (98 - 107 mmol/L) 112 H 110 H Carbon Dioxide (22 - 30 mmol/L) 20 L 20 L Anion Gap (5 - 16) 10 9 BUN (9 - 20 mg/dL) 27 H 23 H Creatinine (0.7 - 1.2 mg/dL) 3.2 H 3.6 H Estimated GFR (>60 ml/min) 20 L 18 L BUN/Creatinine Ratio (7 - 25 %) 8.4 6.4 L Glucose (65 - 99 mg/dL) 51 L Calcium (8.4 - 10.2 mg/dL) 7.6 L Iron (49 - 181 ug/dL) 31 L TIBC (261 - 462 ug/dL) 338 Ferritin (17.9 - 464 ng/mL) 11.1 L Total Bilirubin (0.2 - 1.3 mg/dL) 0.3 AST (17 - 59 U/L) 25 ALT (21 - 72 U/L) 27 Alkaline Phosphatase (< 127 U/L) 54 Creatine Kinase (55 - 170 U/L) 109 Troponin I (<0.11 ng/ml) < 0.01 < 0.01 Total Protein (6.3 - 8.2 g/dL) 5.9 L Albumin (3.5 - 5.0 g/dL) 3.4 L Globulin (1.9 - 4.2 gm/dL) 2.5 Albumin/Globulin Ratio (1.1 - 2.2 %) 1.4 Hematology CBC w Diff NO MAN DIFF REQ WBC (4.8 - 10.8 /CUMM) 4.3 L RBC (4.70 - 6.10 /CUMM) 3.39 L Hgb (14.0 - 18.0 G/DL) 8.3 L Hct (42 - 52 %) 25.6 L MCV (80.0 - 94.0 FL) 75.4 L MCH (27.0 - 31.0 PG) 24.4 L RDW (11.5 - 14.5 %) 19.4 H Plt Count (130 - 400 /CUMM) 163 MPV (7.4 - 10.4 FL) 9.4 Gran % (42.2 - 75.2 %) 55.0 Lymphocytes % (20.5 - 51.1 %) 24.5 Monocytes % (1.7 - 9.3 %) 14.8 H Eosinophils % (0 - 5 %) 5.5 H Basophils % (0.0 - 2.0 %) 0.2 Absolute Granulocytes (1.4 - 6.5 /CUMM) 2.4 Absolute Lymphocytes (1.2 - 3.4 /CUMM) 1.1 L Absolute Monocytes (0.10 - 0.60 /CUMM) 0.6 Absolute Eosinophils (0.0 - 0.7 /CUMM) 0.2 Absolute Basophils (0.0 - 0.2 /CUMM) 0 PUBS MCHC (33.0 - 37.0 G/DL) 32.3 L 01/31 01/31 1719 1542 Chemistry Sodium (137 - 145 mmol/L) 140 Potassium (3.5 - 5.1 mmol/L) 5.5 H Chloride (98 - 107 mmol/L) 105 Carbon Dioxide (22 - 30 mmol/L) 23 Anion Gap (5 - 16) 12 BUN (9 - 20 mg/dL) 24 H Creatinine (0.7 - 1.2 mg/dL) 4.0 H Estimated GFR (>60 ml/min) 16 L BUN/Creatinine Ratio (7 - 25 %) 6.0 L Glucose (65 - 99 mg/dL) 60 L Calcium (8.4 - 10.2 mg/dL) 9.1 Total Bilirubin (0.2 - 1.3 mg/dL) 0.4 AST (17 - 59 U/L) 29 ALT (21 - 72 U/L) 28 Alkaline Phosphatase (< 127 U/L) 56 Troponin I (<0.11 ng/ml) < 0.01 Total Protein (6.3 - 8.2 g/dL) 7.1 Albumin (3.5 - 5.0 g/dL) 4.4 Globulin (1.9 - 4.2 gm/dL) 2.7 Albumin/Globulin Ratio (1.1 - 2.2 %) 1.6 TSH (0.270 - 4.200 uIU/mL) 4.010 Hematology CBC w Diff NO MAN DIFF REQ WBC (4.8 - 10.8 /CUMM) 6.4 RBC (4.70 - 6.10 /CUMM) 4.01 L Hgb (14.0 - 18.0 G/DL) 9.8 L Hct (42 - 52 %) 30.0 L MCV (80.0 - 94.0 FL) 74.9 L MCH (27.0 - 31.0 PG) 24.5 L RDW (11.5 - 14.5 %) 19.5 H Plt Count (130 - 400 /CUMM) 232 MPV (7.4 - 10.4 FL) 9.1 Gran % (42.2 - 75.2 %) 59.4 Lymphocytes % (20.5 - 51.1 %) 23.2 Monocytes % (1.7 - 9.3 %) 12.0 H Eosinophils % (0 - 5 %) 5.4 H Basophils % (0.0 - 2.0 %) 0 L Absolute Granulocytes (1.4 - 6.5 /CUMM) 3.8 Absolute Lymphocytes (1.2 - 3.4 /CUMM) 1.5 Absolute Monocytes (0.10 - 0.60 /CUMM) 0.8 H Absolute Eosinophils (0.0 - 0.7 /CUMM) 0.3 Absolute Basophils (0.0 - 0.2 /CUMM) 0 PUBS MCHC (33.0 - 37.0 G/DL) 32.7 L Toxicology Salicylates (0 - 20.0 mg/dL) < 1.0 Urine Opiates Screen (>2000 NG/ML) < 100.00 Methadone Screen (>300 NG/ML) > 735 H Acetaminophen (10.0 - 30.0 ug/mL) < 10.0 L Barbiturate Screen (>200 NG/ML) < 60 Ur Phencyclidine Scrn (>25 NG/ML) 13.90 Amphetamines Screen (>1000 NG/ML) < 100 U Benzodiazepines Scrn (>200 NG/ML) > 800 H Urine Cocaine Screen (>300 NG/ML) < 50 Urine Cannabis Screen (>50 NG/ML) < 5.00 Serum Alcohol (<10 MG/DL) < 10.0 Diagnostic Data EKG Results (02/01/2017) sinus bradycardia at 42 bpm early precordial transition, and otherwise unremarkable. No significant change when compared to previous tracing (01/31/2017). Assessment/Plan Assessment/Plan Sinus bradycardia in this middle-aged male with a long-standing history of severe Crohn's disease with chronic pain syndrome for which she is on several medications that can cause bradycardia including gabapentin and methadone who presented after being found in an automobile without air conditioning in very hot weather with evidence of acute kidney injury. He is completely asymptomatic from the bradycardia and other than attempting to cut back on the medications that are likely responsible for the bradycardia do not think any other specific intervention is necessary at this time. Common etiologies for sinus bradycardia include sick sinus syndrome, obstructive sleep apnea, exaggerated vagal tone, certain infections including Lyme disease, hypothyroidism, long QT syndrome, and frequently medications which are the likely culprits here. Recommendations: * Continue on telemetry and follow up troponin and ECG although doubt an acute coronary syndrome. * Continue IV hydration. * Consider echocardiogram to assess left ventricular function. * Check free T4, TSH, magnesium, phosphorus, Lyme titer, etc. * DVT prophylaxis. Consult Acknowledgment - Thank you for your consult request.
[2017-02-01 14:58] VITALS: BP 144/72
[2017-02-01 23:00] VITALS: BP 140/64
[2017-02-02 06:00] VITALS: BP 140/64
[2017-02-02 08:29] LABS: ABSOLUTE BASOPHIL COUNT 0 /CUMM (0.0-0.2); ABSOLUTE EOSINOPHIL COUNT 0.2 /CUMM (0.0-0.7); ABSOLUTE GRANULOCYTE CT 2.7 /CUMM (1.4-6.5); ABSOLUTE MONOCYTE COUNT 0.6 /CUMM (0.10-0.60); BASOPHIL % 0.4 % (0.0-2.0); EOSINOPHIL % 4.7 % (0-5); GRANULOCYTE % 59.9 % (42.2-75.2); HEMATOCRIT 26.9 % (42-52); MEAN CORPUSCULAR HGB 24.4 PG (27.0-31.0); MEAN CORPUSCULAR HGB CONC 32.2 G/DL (33.0-37.0); MEAN CORPUSCULAR VOLUME 75.7 FL (80.0-94.0); MEAN PLATELET VOLUME 9.9 FL (7.4-10.4); PLATELET COUNT 164 /CUMM (130-400); RBC DISTRIBUTION WIDTH 19.4 % (11.5-14.5); RED BLOOD CELL CT 3.56 /CUMM (4.70-6.10); WHITE BLOOD CELL COUNT 4.5 /CUMM (4.8-10.8)
--- NOTE | 2017-02-02 08:47 | PN- Housestaff ---
CRISTIAN DELGADO MD,ISAÍAS 02/02/17 0846: Subjective Follow-up For: asymptomatic bradycardia polysubstance abuse Complaints: no complaints Tele-Events Since Last Visit: Sinus Bradycaria, 40-50's Review of Systems Constitutional: Denies: chills. EENTM: Denies: visual changes. Cardiovascular: Denies: chest pain. Respiratory: Denies: short of breath. Gastrointestinal: Denies: abdominal pain. Objective Last 24 Hrs of Vital Signs/I&O Vital Signs Date Time Temp Pulse Resp B/P B/P Pulse O2 O2 Flow FiO2 Mean Ox Delivery Rate 02/02 0600 98.3 46 18 140/64 95 Room Air 02/01 2300 98.3 46 18 140/64 96 Room Air 02/01 2200 Room Air 02/01 1458 98.2 48 20 144/72 96 Room Air Intake & Output 02/02 1600 02/02 0800 02/02 0000 Intake Total 1000 505 Output Total 1200 Balance -200 505 Intake, IV 1000 325 Intake, Oral 180 Output, Urine 1200 Physical Exam General Appearance: Alert, Oriented X3, Cooperative, No Acute Distress HEENT: Atraumatic Cardiovascular: Regular Rate, Normal S1, Normal S2, Bradycardia Lungs: Clear to Auscultation Abdomen: Normal Bowel Sounds Extremities: No Clubbing, No Cyanosis, No Edema Vascular: Normal Pulses Current Medications: Current Medications Sig/Loamide Start time Last Medication Dose Route Stop Time Status Admin Acetaminophen 650 MG Q6P PRN 01/31 2230 AC PO Atropine Sulfate 1 MG ONCE PRN 02/01 0230 AC IV PUSH Calcium Carbonate 500 MG ONCE ONE 02/01 2130 DC PO 02/01 2131 Clonazepam 1 MG BID 02/01 1000 AC 02/02 PO 02/08 0959 0905 Ferrous Sulfate 325 MG DAILY 02/01 1816 AC PO Fluoxetine HCl 40 MG DAILY 02/01 1000 AC 02/02 PO 0857 Gabapentin 100 MG Q8 02/01 0601 AC 02/02 PO 0641 Heparin Sodium 5,000 UNIT Q8 02/01 0600 AC 02/02 (Porcine) SC 0642 Methadone HCl 90 MG DAILY AC 02/01 0700 AC 02/02 PO 0641 Polyethylene Glycol 17 GM DAILY PRN 02/01 1830 AC PO Sodium Chloride 1,000 ML Q10H 02/01 0115 AC 02/02 IV 0534 Last 24 Hrs of Lab/Hao Results Last 24 Hrs of Labs/Mics: Laboratory Tests 02/02/17 0645: Anion Gap 7, Estimated GFR 33 L, BUN/Creatinine Ratio 11.4, Phosphorus 3.4, Magnesium 1.7, CBC w Diff NO MAN DIFF REQ, RBC 3.56 L, MCV 75.7 L, MCH 24.4 L , RDW 19.4 H, MPV 9.9, Gran % 59.9, Lymphocytes % 22.7, Monocytes % 12.3 H, Eosinophils % 4.7, Basophils % 0.4, Absolute Granulocytes 2.7, Absolute Lymphocytes 1.0 L, Absolute Monocytes 0.6, Absolute Eosinophils 0.2, Absolute Basophils 0, PUBS MCHC 32.2 L, Lyme Disease Antibody Pending Assessment/Plan Assessment: 56-year-old gentleman with past medical history significant for Crohn's disease status post multiple resection surgeries, chronic abdomen pain, chronic anemia, chronic blood loss, substance abuse disorder, Parkinson's disease, hypertension, depression, chronic smoker, opiate dependence on methadone was brought to the emergency department by the ambulance c/o episode of lethargy, sleeping while driving admitted night of 01/31/17 His Vitals on admission afebrile, heart rate 65 later dropped to 47, respiratory rate 16, blood pressure 170/79, saturating at 96 on room air. U tox positive for methadone and benzodiazepines. EKG showed sinus rhythm, sinus bradycardia, NV interval 160, QTC 452. He received 3 bags of IV normal saline in the emergency room. 1. Asymptomatic Bradycardia * No h/o athletism. * Patient was brought to ER as he was found sleeping in the car. * Patient admitted taking methadone and benzodiazepine one the morning of admisison. * Bradycardia most likely from drug overdose methadone asit is known to cause ( bradycardia, cardiac arrest, cardiac arrhythmia, QT interval prolongation and other ECG changes) * EKg and troponin < 0.0.1 X 3 negative. * Cardiology consult * Avoid beta blockers and calcium channel blockers * Ct reduced dose of methadone, confirm methadone dosage on week days. 2. Acute kidney injury on CKD * Most from dehydration. * Ct to hold his home medication lisinopril. * Continue normal saline 100 mL per hour * MARKUS improved, ct to trend, curernt Cr 2.1 3. Chronic anemia * Stbale. * serum coco and ferritin low, mostlikely 2/2 to iron deficiency as RDW is also increased * Check RI index * start ferrous sulfate. * PRN miralax if constipated. 4. Depression * Ct prozac * stable. 5. Hypertension * Usually takes lisinopril at home. * lisinopril was held because of MARKUS * Restarted Lisinopril 6. Crohn's disease * Status post multiple surgeries, resections, chronic abdomen pain, chronic anemia, chronic blood loss. * Gets B12 injections every month. * Gets infliximab once a month. * Follows Dr. Bales at [facility] 7. Polysubstance abuse * He is a chronic smoker 1 pack per day. * Illicit drug abuser-takes Klonopin. * Opiate dependence on methadone treatment. * Takes 180 mg every day at 6 AM from [facility] * Will continued reduced dosage of 90 mg due ot bradycardia as this seems to be most likely causing the low HR. * Psych eval Full code Regular diet DVT PX : Subcutaneous heparin Problem List: 1. Bradycardia 2. Opioid abuse 3. Polysubstance abuse Pain Ratin Pain Location: NA Pain Goal: Pain 4 or less Pain Plan: Continue current medications Tomorrow's Labs & Rationales: BEP for Electrolyte abnormalities DVT/Prophylaxis: pharmacological Consulting Request: Consulting Specialty: Psychiatry SAIDA AVALOS,AMIR 02/02/17 1109: Attending MD Review Statement Attending Statement Attending MD Statement: examined this patient, discuss w/resident/PA/SURGICAL DRESSING MAKER, agreed w/resident/PA/SURGICAL DRESSING MAKER, reviewed EMR data (avail), discussed with nursing Attending Assessment/Plan: Mr. Darby was seen by me. Chart reviewed. VSS, HR improved. Denies any interval issues On IVF, Cr improving (2.1 <-- 3.2). K mildly elevated A/P: Cont IVF and f/u lytes -- Give Kayexalate/stool sofneres for BM -- rest of the plan as per resident's note
--- NOTE | 2017-02-02 10:00 | PN- Housestaff ---
Assessment/Plan Assessment: 56-year-old gentleman with past medical history significant for Crohn's disease status post multiple resection surgeries, chronic abdomen pain, chronic anemia, chronic blood loss, substance abuse disorder, Parkinson's disease, hypertension, depression, chronic smoker, opiate dependence on methadone was brought to the emergency department by the ambulance c/o episode of lethargy, sleeping while driving admitted night of 01/31/17 His Vitals on admission afebrile, heart rate 65 later dropped to 47, respiratory rate 16, blood pressure 170/79, saturating at 96 on room air. U tox positive for methadone and benzodiazepines. EKG showed sinus rhythm, sinus bradycardia, [place] interval 160, QTC 452. He received 3 bags of IV normal saline in the emergency room. 1. Asymptomatic Bradycardia * No h/o athletism. * Patient was brought to ER as he was found sleeping in the car. * Patient admitted taking methadone and benzodiazepine one the morning of admisison. * Bradycardia most likely from drug overdose methadone asit is known to cause ( bradycardia, cardiac arrest, cardiac arrhythmia, QT interval prolongation and other ECG changes) * EKg and troponin < 0.0.1 X 3 negative. * Cardiology consult * Avoid beta blockers and calcium channel blockers * Ct reduced dose of methadone, confirm methadone dosage on week days. 2. Acute kidney injury on CKD * Most from dehydration. * Ct to hold his home medication lisinopril. * Continue normal saline 100 mL per hour * MARKUS improved, ct to trend, curernt Cr 2.1 3. Chronic anemia * Stbale. * serum coco and ferritin low, mostlikely 2/2 to iron deficiency as RDW is also increased * Check RI index * start ferrous sulfate. * PRN miralax if constipated. 4. Depression * Ct prozac * stable. 5. Hypertension * Usually takes lisinopril at home. * lisinopril was held because of MARKUS * Restarted Lisinopril 6. Crohn's disease * Status post multiple surgeries, resections, chronic abdomen pain, chronic anemia, chronic blood loss. * Gets B12 injections every month. * Gets infliximab once a month. * Follows Dr. Bales at [facility] 7. Polysubstance abuse * He is a chronic smoker 1 pack per day. * Illicit drug abuser-takes Klonopin. * Opiate dependence on methadone treatment. * Takes 180 mg every day at 6 AM from [facility] * Will continued reduced dosage of 90 mg due ot bradycardia as this seems to be most likely causing the low HR. * Psych eval Full code Regular diet DVT PX : Subcutaneous heparin Consulting Request: Consulting Specialty: Psychiatry
--- NOTE | 2017-02-02 14:22 | ECHOCARDIOGRAM REPORT ---
TIFFANIE OLIVEIRA Age: 56 : 1960 Gender: M Exam Date: 02/02/2017 10:51 Exam Location: 1 [address] Ht (in): 70 Wt (lb): 140 BSA: 1.76 BP: 140 / 64 Ordering Physician: DANY GHOSH MD Referring Physician: Riki Sutherland MD Technologist: Vivi Hilliard [facility] Room Number: 179-01 Indications: EVALUATION OF ASCENDING AORTA Rhythm: Sinus Technical Quality: Fair FINDINGS Left Ventricle Normal size left ventricle. Normal left ventricular wall thickness. No obvious regional wall motion abnormalities. Normal left ventricular ejection fraction visually estimated at > 65%. Normal left ventricular diastolic filling pattern for age. Right Ventricle Mild right ventricular dilatation. Right Atrium Normal right atrial size. Left Atrium Mild left atrial dilatation. Mitral Valve Mitral valve mildly thickened. Mild mitral regurgitation. Aortic Valve Structurally normal trileaflet aortic valve. No aortic valve stenosis or regurgitation. Aortic valve not well visualized, grossly normal. Tricuspid Valve Structurally normal tricuspid valve. Mild tricuspid regurgitation. Mild pulmonary hypertension. Right ventricular systolic pressure estimated to be elevated at 36 mmHg. Pulmonic Valve Pulmonic valve not well visualized, grossly normal. No pulmonic regurgitation. Pericardium Small pericardial effusion. No echocardiographic findings to suggest a hemodynamically significant pericardial effusion. Great Vessels Upper normal limits for size aortic root. Dilated inferior vena cava. CONCLUSIONS Normal size left ventricle. Normal left ventricular wall thickness. No obvious regional wall motion abnormalities. Normal left ventricular ejection fraction visually estimated at > 65%. Normal left ventricular diastolic filling pattern for age. Mild right ventricular dilatation. Normal right atrial size. Mild left atrial dilatation. Mild mitral regurgitation. Mild tricuspid regurgitation. Mild pulmonary hypertension. Small pericardial effusion. Upper normal limits for size aortic root. Dilated inferior vena cava. Riki Sutherland M.D. (Electronically Signed) Final Date: 02 February 2017 14:21 MEASUREMENTS (Male / Female) Normal Values 2D ECHO LV Diastolic Diameter PLAX 5.0 cm 4.2 - 5.9 / 3.9 - 5.3 cm LV Systolic Diameter PLAX 2.6 cm 2.1 - 4.0 cm LV Fractional Shortening PLAX 48.0 % 25 - 46 % LV Ejection Fraction 2D Teich 79.2 % IVS Diastolic Thickness 0.8 cm LVPW Diastolic Thickness 1.0 cm LV Relative Wall Thickness 0.4 RV Internal Dim ED PLAX 3.4 cm 1.9 - 3.8 cm LVOT Diameter 2.1 cm Aortic Root Diameter 3.7 cm LA Systolic Diameter LX 4.2 cm 3.0 - 4.0 / 2.7 - 3.8 cm LA Volume 76.0 cm 18 - 58 / 22 - 52 cm Ascending Aorta Diameter 3.2 cm DOPPLER AV Peak Velocity 112.0 cm/s AV Peak Gradient 5.0 mmHg AV Mean Velocity 76.9 cm/s AV Mean Gradient 3.0 mmHg AV Velocity Time Integral 30.2 cm LVOT Peak Velocity 98.2 cm/s LVOT Peak Gradient 3.9 mmHg LVOT Mean Velocity 65.5 cm/s LVOT Mean Gradient 2.0 mmHg LVOT Velocity Time Integral 26.5 cm LVOT Stroke Volume 91.8 cm AV Area Cont Eq vti 3.0 cm AV Area Cont Eq pk 3.0 cm MV Peak Velocity 146.0 cm/s MV Peak Gradient 8.5 mmHg MV Mean Velocity 49.9 cm/s MV Mean Gradient 1.0 mmHg Mitral E Point Velocity 102.0 cm/s Mitral A Point Velocity 50.7 cm/s Mitral E to A Ratio 2.0 MV PHT Velocity 154.0 cm/s MV Deceleration Maury 1035.0 cm/s MV Pressure Half Time 44.6 ms MV Area PHT 4.9 cm MV Deceleration Time 116.0 ms TR Peak Velocity 279.0 cm/s TR Peak Gradient 31.1 mmHg Right Atrial Pressure 5.0 mmHg Pulmonary Artery Systolic Pressu 36.1 mmHg Right Ventricular Systolic Press 36.1 mmHg PV Peak Velocity 84.3 cm/s PV Peak Gradient 2.8 mmHg PV Mean Velocity 63.1 cm/s PV Mean Gradient 2.0 mmHg PV Velocity Time Integral 23.9 cm LV E' Lateral Velocity 13.3 cm/s Mitral E to LV E' Lateral Ratio 7.7 LV E' Septal Velocity 14.0 cm/s Mitral E to LV E' Septal Ratio 7.3
[2017-02-02 14:33] VITALS: BP 140/60; BP 144/80
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
[2017-02-02 23:09] VITALS: BP 160/82
--- NOTE | 2017-02-02 23:26 | NUR ---
PATIENT BP 170/100, HR 50. DR. LAUGHLIN NOTIFIED AND IV FLUIDS DISCONTINUED ORDERED. NO FURTHER INTERVENTIONS AT THIS TIME. WILL CONTINUE TO MONITOR.
[2017-02-03 06:50] VITALS: BP 156/80
--- NOTE | 2017-02-03 07:31 | PN-Observation ---
DANY GHOSH 02/03/17 0731: Observation Note Observation Note _ I have personally examined TIFFANIE OLIVEIRA. him disposition is uncertain at this time. Before a determination can be made, he requires continued observation for polysubstance overdose, bradycardia, MARKUS. 02/02/17 ECHO CONCLUSIONS Normal size left ventricle. Normal left ventricular wall thickness. No obvious regional wall motion abnormalities. Normal left ventricular ejection fraction visually estimated at > 65%. Normal left ventricular diastolic filling pattern for age. Mild right ventricular dilatation. Normal right atrial size. Mild left atrial dilatation. Mild mitral regurgitation. Mild tricuspid regurgitation. Mild pulmonary hypertension. Small pericardial effusion. Upper normal limits for size aortic root. Dilated inferior vena cava. Assessment/Plan Assessment: A: 56-year-old gentleman with past medical history significant for Crohn's disease status post multiple resection surgeries, chronic abdomen pain, chronic anemia, chronic blood loss, substance abuse disorder, Parkinson's disease, hypertension, depression, chronic smoker, opiate dependence on methadone was brought to the emergency department by the ambulance c/o episode of lethargy, sleeping while driving admitted night of 01/31/17 His Vitals on admission afebrile, heart rate 65 later dropped to 47, respiratory rate 16, blood pressure 170/79, saturating at 96 on room air. U tox positive for methadone and benzodiazepines. EKG showed sinus rhythm, sinus bradycardia, NJ interval 160, QTC 452. He received 3 bags of IV normal saline in the emergency room. P: 1. Asymptomatic Bradycardia * No h/o athletism. * Patient was brought to ER as he was found sleeping in the car. * Patient admitted taking methadone and benzodiazepine one the morning of admisison. * Bradycardia most likely from drug overdose methadone asit is known to cause ( bradycardia, cardiac arrest, cardiac arrhythmia, QT interval prolongation and other ECG changes) * EKg and troponin < 0.0.1 X 3 negative. * Cardiology consult * Avoid beta blockers and calcium channel blockers * Ct reduced dose of methadone, confirm methadone dosage on week days. 2. Acute kidney injury on CKD * Most from dehydration. * Ct to hold his home medication lisinopril. * Continue normal saline 100 mL per hour * MARKUS improved, ct to trend, curernt Cr 2.1 3. Chronic anemia * St[place]ale. * serum coco and ferritin low, mostlikely 2/2 to iron deficiency as RDW is also increased * Check RI index * start ferrous sulfate. * PRN miralax if constipated. 4. Depression * Ct prozac * stable. 5. Hypertension * Usually takes lisinopril at home. * lisinopril was held because of MARKUS * Restarted Lisinopril 6. Crohn's disease * Status post multiple surgeries, resections, chronic abdomen pain, chronic anemia, chronic blood loss. * Gets B12 injections every month. * Gets infliximab once a month. * Follows Dr. Bales at [facility] 7. Polysubstance abuse * He is a chronic smoker 1 pack per day. * Illicit drug abuser-takes Klonopin. * Opiate dependence on methadone treatment. * Takes 180 mg every day at 6 AM from [facility] * Will continued reduced dosage of 90 mg due ot bradycardia as this seems to be most likely causing the low HR. * Psych eval Full code Regular diet DVT PX : Subcutaneous heparin Dispo-Patient is stable planning DC home today Problem List: 1. Polysubstance abuse 2. Opioid abuse 3. Benzodiazepine abuse 4. Acute kidney injury 5. Bradycardia Consulting Request: Consulting Specialty: Psychiatry Subjective Follow-up For: Polysubstance abuse Bradycardia MARKUS Subjective: Patient has no complaints. No acute events overnight Review of Systems Constitutional: Reports: see HPI. Objective Last 24 Hrs of Vital Signs/I&O Vital Signs Date Time Temp Pulse Resp B/P B/P Pulse O2 O2 Flow FiO2 Mean Ox Delivery Rate 02/03 0650 98.9 54 20 156/80 95 Room Air 02/02 2309 97.9 86 20 160/82 97 02/02 1433 98.8 45 20 140/60 95 02/02 1048 56 140/64 Intake & Output 02/03 0800 02/03 0000 02/02 1600 Intake Total 1375 1550 Output Total 300 1350 1325 Balance -300 25 225 Intake, IV 875 1000 Intake, Oral 500 550 Output, Urine 300 1350 1325 Physical Exam General Appearance: Alert, Oriented X3, Cooperative, No Acute Distress HEENT: Atraumatic, PERRLA Neck: Supple, No JVD Cardiovascular: Normal S1, Normal S2, Systolic murmur Lungs: Clear to Auscultation, Normal Air Movement Abdomen: Normal Bowel Sounds, Soft, No Tenderness Extremities: No Cyanosis, No Edema Current Medications: Current Medications Sig/Olamide Start time Last Medication Dose Route Stop Time Status Admin Acetaminophen 650 MG Q6P PRN 01/31 2230 AC PO Atropine Sulfate 1 MG ONCE PRN 02/01 0230 AC IV PUSH Clonazepam 1 MG .STK-MED ONE 02/02 2118 DC PO 02/02 2119 Clonazepam 1 MG BID 02/01 1000 AC 02/02 PO 02/08 0959 2121 Ferrous Sulfate 325 MG DAILY 02/01 1816 AC PO Fluoxetine HCl 40 MG DAILY 02/01 1000 AC 02/02 PO 0857 Gabapentin 100 MG Q8 02/01 0601 AC 02/03 PO 0604 Heparin Sodium 5,000 UNIT Q8 02/01 0600 AC 02/03 (Porcine) SC 0604 Lisinopril 20 MG DAILY 02/02 1000 AC 02/02 PO 1048 Magnesium Chloride 64 MG BID 02/02 2200 DC 02/02 PO 02/02 220 2121 Methadone HCl 90 MG DAILY AC 02/01 0700 AC 02/03 PO 0603 Polyethylene Glycol 17 GM DAILY PRN 02/01 1830 AC PO Sodium Chloride 1,000 ML Q10H 02/01 0115 DC 02/02 IV 2205 Sodium Polystyrene 60 ML ONCE ONE 02/02 1400 DC Sulfonate PO 02/02 1401 Last 24 Hrs of Labs/Mics: Laboratory Tests 02/03/17 0657: Anion Gap 9, Estimated GFR 37 L, BUN/Creatinine Ratio 14.7 SOLANGE JOLLY 02/03/17 1145: Attending Addendum Attending Brief Note 56 o/m with sinus bradyacardia asymptomatic and drug overdose was placed in observation status with acute kidney injury 2/2 dehydration. Patient renal functions improved and being discharged in stable condition. Encourage PO, seen by nicolasa and follow recommendations. f/u o/p PCP in 1 week of d/c.
--- NOTE | 2017-02-03 08:23 | NUR ---
IV INFILTRATED. PATIENT REFUSES TO HAVE NEW LINE PLACED. DR. OLIVA DUMONT NOTIFIED. PER DR. TIM MOORE TO HAVE NO IV SITE.
[2017-02-03] MEDS ORDERED: FERROUS SULFAT325 M2 PO ×2 (08:58→09:03)
--- NOTE | 2017-02-03 09:02 | Patient Discharge Instructions ---
Discharge Instructions General Discharge Information You were seen/treated for: Asymptomatic bradycardia Polysubstance abuse/OVERDOSE MARKUS Opiate dep on Main, sedative hypnotic dep, Mood d/o r/o SIMD r/o r/o PTSD You had these procedures: None Special Instructions: Follow up with the fishing guide within 1 week after discharge Take your iron tablets for iron deficiency Follow up with the PCP within 1 week after discharge Follow up with the [facility] after discharge Diet Continue normal diet: Yes Activity Full Activity/No Limits: Yes Acute Coronary Syndrome Inclusion Criteria At DC or during hospital stay patient has or had the following: ACS DIAGNOSIS No Discharge Core Measures Meds if any: Prescribed or Continued at Discharge Meds if any: NOT Prescribed or Continued at Discharge Congestive Heart Failure Inclusion Criteria At DC or during hospital stay patient has or had the following: CHF DIAGNOSIS No Discharge Core Measures Meds if any: Prescribed or Continued at Discharge Meds if any: NOT Prescribed or Continued at Discharge Cerebrovascular accident Inclusion Criteria At DC or during hospital stay patient has or had the following: CVA/TIA Diagnosis No Discharge Core Measures Meds if any: Prescribed or Continued at Discharge Meds if any: NOT Prescribed or Continued at Discharge Venous thromboembolism Inclusion Criteria VTE Diagnosis No VTE Type NONE VTE Confirmed by (Test) NONE Discharge Core Measures - Per Current guidelines, there needs to be overlap - treatment for the first 5 days of Warfarin therapy. - If discharged on Warfarin prior to 5 days of - overlap therapy, the patient will need to be - assessed for post discharge needs including - *Post discharge parental anticoagulation - *Warfarin and/or parental anticoagulation education - *Follow up date to check INR post discharge At least 5 days overlap therapy as Inpatient No Meds if any: Prescribed or Continued at Discharge Note: Overlap Therapy is Warfarin and Anticoagulant Meds if any: NOT Prescribed or Continued at Discharge
[2017-02-03 09:30] VITALS: BP 156/80
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
== END 2017-02-03 11:57 ==
LOC: ERH 15:11 → ERHI 21:45 → 1NO 21:45 → ENRESERV 22:32 → 1NO 23:23 → ENPENDDIS 02-03 09:52 → 1NO 02-03 11:57
PROVIDERS: Hospitalist; Internal Medicine; Physician Assistant; ADMIT Internal Medicine
DX: R00.1 Bradycardia, unspecified (principal); G92 Toxic encephalopathy; F41.9 Anxiety disorder, unspecified; F11.20 Opioid dependence, uncomplicated; N17.9 Acute kidney failure, unspecified; F19.10 Other psychoactive substance abuse, uncomplicated; I73.9 Peripheral vascular disease, unspecified; K50.90 Crohn's disease, unspecified, without complications; I12.9 Hypertensive chronic kidney disease with stage 1 through stage 4 chronic kidney disease, or unspecified chronic kidney disease; F17.200 Nicotine dependence, unspecified, uncomplicated; N18.9 Chronic kidney disease, unspecified; F32.9 Major depressive disorder, single episode, unspecified; D64.9 Anemia, unspecified; G89.29 Other chronic pain
CPT/HCPCS: 86618; 36415; 80307; 82436; 93005; 93010; 93306; 96372; G0378; G0480; J0461; J1644